=== PATIENT | female | born 1985 | race Caucasian/White ===

== ENCOUNTER 2024-09-02 13:35 | Inpatient (IN) | payer OTHER ==
[~2024-09-02] VITALS: Ht 160 cm; Wt 80.3 kg
[~2024-09-02 13:35] MED LIST: [UNRECOGNIZED DRUG - OTHER] PO
[2024-09-02 14:27] LABS: URINE APPEARANCE Cloudy; URINE BILIRRUBIN Negative (NEGATIVE); URINE BLOOD Negative; URINE COLOR Yellow; URINE GLUCOSE Negative (NEGATIVE); URINE KETONE Negative (NEGATIVE); URINE LEUKOCYTE Negative; URINE NITRATE Negative; URINE PROTEIN Negative (NEGATIVE)
[2024-09-02 14:31] LABS: URINE BACTERIA 1235.9 uL (0.0-1933); URINE EPITHELIAL CELLS 53.3 uL (0.0-38.8); URINE RBC 12.9 uL (0.0-20.8); URINE WBC 9.6 uL (0.0-23.2)
[2024-09-02 14:46] LABS: INR < 0.93; PARTIAL THROMBOPLASTIN TIME 26.3 SECONDS (22.0-34.0); PROTHROMBIN TIME 10.2 SECONDS (9.0-11.5)
[2024-09-02 15:05] LABS: ALBUMIN 2.8 gm/dL (3.4-5.0); BILIRUBIN TOTAL 0.26 mg/dL (0.3-1.2); CALCIUM 9.1 mg/dL (8.5-10.1); CREATININE SERUM 0.67 mg/dL (0.55-1.02); GFR 98.5; GLOBULINA 3.6 G/DL (2.4-3.5); POTASSIUM 3.75 mEq/L (3.5-5.1); TOTAL PROTEIN 6.4 gm/dL (6.4-8.2)
[2024-09-02 15:31] LABS: URINE CAST 0.14 uL (0.0-1.40)
[2024-09-14 12:03] VITALS: BP 114/76
[2024-09-14] MEDS ORDERED: CHILDREN'S ASPI81 MG PO (12:31)
[2024-09-14] MEDS ORDERED: PRENATAL + DHA1 EAC1 PO (12:31)
[2024-09-14 12:32] VITALS: BP 114/76
[2024-09-14 15:16] VITALS: BP 116/69
[2024-09-14] MEDS ORDERED: MISOPROSTOL 25 MCG/4 ML GEL.W.APPL ONE ×2 (15:43→20:29)
[2024-09-14] MEDS ORDERED: MISOPROSTOL 25 MCG/4 ML GEL.W.APPL VAG ONE ×2 (16:00→20:30)
[2024-09-14 16:48] LABS: HEMATOCRIT 35.4 % (36.0-45.00); HEMOGLOBIN 11.9 g/dL (12.0-15.00); MEAN CELL VOLUME 89.9 fL (80.00-100.00); MEAN CORPUSCULAR HEMOGLOBIN 30.2 pg (27.00-32.0); MEAN CORPUSCULAR HGB CONC 33.6 g/dl (32.0-36.0); PLATELET COUNT 162 K/uL (150-450); RED BLOOD COUNT 3.94 M/uL (4.00-6.00); RED CELL DISTRIBUTION WIDTH 13.6 % (11.5-14.5)
[2024-09-14 19:26] VITALS: BP 112/72
[2024-09-14 23:23] VITALS: BP 100/64
[2024-09-15 04:11] VITALS: BP 114/71
[2024-09-15] MEDS ORDERED: OXYTOCIN 20 UNITS/500ML RL PIGGYBAG IV ONE (06:57)
[2024-09-15] MEDS ORDERED: OXYTOCIN 500 ML IV SCH (07:00)
[2024-09-15 08:17] VITALS: BP 118/72
[2024-09-15] MEDS ORDERED: ERYTHROMYCIN BASE OPHT 1GM EACH TUBE OP ONE (11:13)
[2024-09-15] MEDS ORDERED: OXYTOCIN 20 UNITS/1000ML RL PIGGYBAG IV ONE (11:13)
[2024-09-15] MEDS ORDERED: CHLORHEXIDINE GLUCONATE 120 ML BOTTLE TOP ONE (11:13)
[2024-09-15] MEDS ORDERED: LIDOCAINE HCL 1% 10ML VIAL ONE (11:13)
[2024-09-15 11:31] VITALS: BP 118/56
[2024-09-15] MEDS ORDERED: ACETAMINOPHEN 500 MG GEL..CAP PO PRN (12:30)
[2024-09-15] MEDS ORDERED: OXYTOCIN 1,000 ML IV SCH (12:30)
[2024-09-15 13:05] VITALS: BP 117/72
[2024-09-15 13:10] VITALS: BP 117/72
[2024-09-15 16:25] LABS: HEMATOCRIT 35.3 % (36.0-45.00); HEMOGLOBIN 12.1 g/dL (12.0-15.00); MEAN CELL VOLUME 87.8 fL (80.00-100.00); MEAN CORPUSCULAR HEMOGLOBIN 30.2 pg (27.00-32.0); MEAN CORPUSCULAR HGB CONC 34.4 g/dl (32.0-36.0); PLATELET COUNT 164 K/uL (150-450); RED BLOOD COUNT 4.02 M/uL (4.00-6.00); RED CELL DISTRIBUTION WIDTH 13.6 % (11.5-14.5)
[2024-09-15 17:52] VITALS: BP 124/71
[2024-09-16 03:41] VITALS: BP 107/66
[2024-09-16 08:15] VITALS: BP 104/60
[2024-09-16] MEDS ORDERED: PNV,CALCIUM 72/IRON/FOLIC ACID 1 TAB TABLET PO SCH (09:00)
[2024-09-16 15:57] VITALS: BP 116/74
[2024-09-17 01:53] VITALS: BP 102/67
[2024-09-17 08:00] VITALS: BP 110/68
== END 2024-09-17 16:31 | disposition home or self-care (01) | DRG 807 ==
LOC: LDR 09-14 11:44 → OB/GYN 09-15 12:20 → LDR 09-21 10:58
PROVIDERS: Obstetrics & Gynecology; ADMIT Student in an Organized Health Care Education/Training Program; ATTEND Student in an Organized Health Care Education/Training Program
PROC: 3E0P7VZ Introduction of Hormone into Female Reproductive, Via Natural or Artificial Opening (ICD-10-PCS; 2024-09-14)
PROC: 4A1HXCZ Monitoring of Products of Conception, Cardiac Rate, External Approach (ICD-10-PCS; 2024-09-14)
PROC: 10E0XZZ Delivery of Products of Conception, External Approach (ICD-10-PCS; principal; 2024-09-15)
PROC: 0KQM0ZZ Repair Perineum Muscle, Open Approach (ICD-10-PCS; 2024-09-15)
PROC: 3E033VJ Introduction of Other Hormone into Peripheral Vein, Percutaneous Approach (ICD-10-PCS; 2024-09-15)
DX: O70.1 Second degree perineal laceration during delivery (principal); Z37.0 Single live birth; Z3A.39 39 weeks gestation of pregnancy